=== PATIENT | female | born 1940 | race Caucasian/White ===

== ENCOUNTER 2019-01-05 10:27 | Outpatient (CLI) | payer MEDICARE, OTHER ==
--- NOTE | 2019-01-05 12:25 | RAD ---
LUMBAR SPINE 4 VIEWS: Lateral views with flexion and extension. INDICATION: Low back pain. Lumbar radiculopathy. FINDINGS: Lumbar vertebrae maintain height. Moderate degenerative hypertrophic spurring is seen in the lower t horacic and upper lumbar spine with large osteophytes at T12-L1, L1-2, and L2-3 levels. Loss of disk space at these levels. Mild loss of disk space at L4-5 and L5-S1 with mild to moderate degenerative osteophytes. Facet hypertrophy is prominent at L4-5 and L5-S1. Slight anterolisthesis at L4-5 does not appear to change with flexion and extension. IMPRESSION: Moderate degenerative changes of the lumbar spine as described. POS: OFF
--- NOTE | 2019-01-05 14:35 | MRI ---
MRI OF LUMBAR SPINE WITHOUT CONTRAST: 01/05/19 Multiplanar and multisequential imaging lumbar spine obtained. INDICATIONS: Low back pain, lumbar radiculopathy. FINDINGS: There are moderately severe degenerative change of the lumbar spine. There is degenerative disc kong es at all levels with loss of disc space. Vertebral body height and alignment is preserved. Degenerat fabienne end plate changes are very prominent at the T12-L1, L1-2 and L2-3 levels. At the T11-T12 level, which is incompletely evaluated on this study there is evidence of a posterior disc protrusion seen on sagittal images which impinges on the lower cord. At T12-L1, diffuse disc bulge abuts the conus. Mild central canal stenosis. Bilateral foraminal sten osis more prominent on the left due to asymmetric disc osteophyte complex. At L1-2, diffuse disc bulge flattens the thecal sac. Facet hypertrophy. Mild central canal stenosis. Foraminal encroachment more severe on the right due to disc osteophyte complex. At L2-3, broad based disc bulge flattens the thecal sac. Small protrusion centrally with slight infer ior extension. Moderate central canal stenosis. Bilateral foraminal stenosis due to diffuse disc bulg e. At L3-4, there is annular fissure with central protrusion flattening the thecal sac resulting in mode rate to severe central canal stenosis which is combined with facet hypertrophy. Bilateral foraminal e ncroachment more severe on the left. At L4-5, slight anterolisthesis. Diffuse disc bulge with annular fissure. Facet hypertrophy is promin ent. Moderate to severe central canal stenosis. Bilateral foraminal stenosis more severe on the left due to asymmetric disc osteophyte complex. At L5-S1, diffuse disc bulge. Facet and ligamentous hypertrophy. Moderate central canal stenosis. Davie ateral foraminal stenosis more severe on the left. IMPRESSION: Multilevel degenerative disc changes with posterior disc bulge and protrusions at several levels res ulting in central canal and foraminal stenosis at multiple levels as described above. POS: OFF
== END 2019-01-05 10:28 | disposition home or self-care (01) ==
LOC: TBSIIMAG 10:27
PROVIDERS: ATTEND Physician Assistant Surgical
DX: M47.26 Other spondylosis with radiculopathy, lumbar region (principal); M48.061 Spinal stenosis, lumbar region without neurogenic claudication
CPT/HCPCS: 72110; 72148